=== PATIENT | male | born 1980 | race Caucasian/White ===

== ENCOUNTER 2023-03-25 02:01 | Emergency (ER) | payer SELFPAY ==
[2023-03-25 02:10] VITALS: BP 130/83; PULSE 64; RESP 16; TEMP 36.7; O2SAT 97; BMI 24.3
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
[2023-03-25 02:17] VITALS: BP 120/83; PULSE 64; RESP 16; TEMP 36.6; O2SAT 99
== END 2023-03-25 02:17 | disposition home or self-care (01) ==
LOC: ER 02:16
PROVIDERS: Emergency Provider Emergency Medicine
DX: Z00.8 Encounter for other general examination (principal)
CPT/HCPCS: 99282

== ENCOUNTER 2023-11-25 00:58 | Emergency (ER) | payer SELFPAY ==
[2023-11-25 00:59] VITALS: BP 148/95; PULSE 105; RESP 20; TEMP 36.6; O2SAT 97; BMI 25.1
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
[2023-11-25 01:08] VITALS: BP 148/95; PULSE 105; RESP 20; TEMP 36.6; O2SAT 97
== END 2023-11-25 01:12 ==
PROVIDERS: Emergency Provider Emergency Medicine
DX: Z00.8 Encounter for other general examination (principal)
CPT/HCPCS: 99281